=== PATIENT | female | born 1940 | race Caucasian/White ===

== ENCOUNTER 2016-04-14 06:25 | Day surgery (SDC) | payer MEDICARE ==
[~2016-04-14] VITALS: Ht 162.6 cm; Wt 53.8 kg
[2016-04-14] MEDS ORDERED: HEPARIN-NS/PF INJ 500 ML ONE (07:06)
[2016-04-14] MEDS ORDERED: ISOPROTERENOL HCL 1 MG/5 ML AMP ONE (07:18)
[2016-04-14] MEDS ORDERED: HEPARIN-D5W INJ 250 ML ONE (07:18)
[2016-04-14] MEDS ORDERED: SODIUM CHLORID 0.9% 500 ML INJ 500 ML IV SCH (07:30)
[2016-04-14] MEDS ORDERED: LEVOFLOXACIN 500 MG PREMIX INJ 100 ML IV SCH (07:30)
[2016-04-14] MEDS ORDERED: LORazepam 1 MG TAB SL SCH (07:30)
[2016-04-14] MEDS ORDERED: SODIUM CHLORID 0.9% 500 ML IV SCH (07:45)
[2016-04-14] MEDS ORDERED: INSULIN HUMAN REGULAR 1,000 UNITS/10 ML VIAL SQ PRN (07:45)
[2016-04-14] MEDS ORDERED: LACTATED RINGER'S 1000 ML IV SCH (07:45)
[2016-04-14] MEDS ORDERED: METOPROLOL TARTRATE 25 MG TAB PO PRN (07:45)
[2016-04-14] MEDS ORDERED: AMLO5TAB2 PO (07:50)
[2016-04-14] MEDS ORDERED: TELM1TAB56 PO (07:50)
[2016-04-14] MEDS ORDERED: PRIL20CA9 PO (07:50)
[2016-04-14] MEDS ORDERED: FLEC1TAB8 PO (07:50)
[2016-04-14] MEDS ORDERED: APIX5TAB PO (07:50)
[2016-04-14] MEDS ORDERED: METO100T9 PO (07:50)
[2016-04-14] MEDS ORDERED: SIMV20TA PO (07:50)
[2016-04-14 07:52] VITALS: BP 174/88; PULSE 63; RESP 16; TEMP 97.7; O2SAT 95
[2016-04-14 08:21] LABS: AUTOMATED NEUTROPHIL # 4.2 TH/MM3 (1.8-7.7); BASOPHIL % 0.7 % (0.0-2.0); EOSINOPHIL # 0.2 TH/MM3 (0-0.4); EOSINOPHIL % 2.4 % (0.0-4.0); HEMATOCRIT 40.7 % (35.0-46.0); HEMO FLAGS DIFF FINAL; LYMPH % 27.7 % (9.0-44.0); LYMPHOCYTE # 1.9 TH/MM3 (1.0-4.8); MEAN CELL VOLUME 91.9 FL (80.0-100.0); MEAN CORPUSCULAR HEMOGLOBIN 31.2 PG (27.0-34.0); MONO % 7.7 % (0.0-8.0); NEUT % 61.5 % (16.0-70.0); PLATELET COUNT 293 TH/MM3 (150-450); RED BLOOD COUNT 4.43 MIL/MM3 (4.00-5.30); RED CELL DISTRIBUTION WIDTH 13.8 % (11.6-17.2); WHITE BLOOD COUNT 6.8 TH/MM3 (4.0-11.0)
--- NOTE | 2016-04-14 08:27 | EKG ---
Date Performed: 04/14/2016 Time Performed: 07:08:24 PTAGE: 75 years EKG: Sinus bradycardia with borderline 1st degree A-V block Septal and lateral ST-T changes are nonspecific Borderline ECG PREVIOUS TRACING : 05/09/2005 09.46 No significant change from previous tracing noted. DOCTOR: Yariel Domingo Interpretating Date/Time 04/14/2016 08:26:09
[2016-04-14 08:32] LABS: PROTHROMBIN TIME - PATIENT 10.8 SEC (9.8-11.6)
[2016-04-14 08:43] LABS: BICARBONATE 27.2 MEQ/L (21.0-32.0); POTASSIUM 3.7 MEQ/L (3.5-5.1)
[2016-04-14] MEDS ORDERED: HEPARIN SODIUM - IV 10,000 UNITS/10 ML VIAL ONE (10:25)
[2016-04-14] MEDS ORDERED: fentaNYL CITRATE 250 MCG/5 ML AMP ONE (10:25)
[2016-04-14] MEDS ORDERED: FUROSEMIDE 40 MG/4 ML VIAL ONE (10:25)
[2016-04-14] MEDS ORDERED: PROTAMINE SULFATE 50 MG/5 ML VIAL ONE (11:17)
[2016-04-14] MEDS ORDERED: ONDANSETRON HCL 4 MG/2 ML VIAL IV PRN (11:45)
[2016-04-14] MEDS ORDERED: ATROPINE SULFATE 1 MG/ML VIAL IV PRN (11:45)
[2016-04-14] MEDS ORDERED: oxyCODONE/ACETAMINOPHEN 5 MG/325 MG TAB PO PRN ×2 (11:45)
[2016-04-14] MEDS ORDERED: SODIUM CHLOR 0.9% 250 ML INJ 250 ML IV PRN (11:45)
[2016-04-14] MEDS ORDERED: LORazepam 2 MG/ML VIAL IV PRN (11:45)
[2016-04-14] MEDS ORDERED: METOCLOPRAMIDE HCL 10 MG/2 ML VIAL IV PRN (11:45)
[2016-04-14] MEDS ORDERED: LIDOCAINE HCL 1% 50 ML VIAL INFIL PRN (11:45)
[2016-04-14] MEDS ORDERED: BACITRACIN OINT 0.9 GM PKT TOP ONE (11:45)
[2016-04-14] MEDS ORDERED: LABETALOL HCL 100 MG/20 ML VIAL ONE (11:54)
[2016-04-14] MEDS ORDERED: hydrALAZINE HCL 20 MG/ML VIAL ONE (11:54)
[2016-04-14] MEDS ORDERED: DO NOT ADM ANY ANTICOAGULANT DRUGS XX PRN (12:30)
[2016-04-14 20:00] VITALS: PULSE 80
[2016-04-14 21:00] VITALS: BP 159/82; PULSE 76; PULSE 83; RESP 14; TEMP 97.3; O2SAT 97
[2016-04-14] MEDS: APIXABAN 5 MG TABLET PO SCH (21:11)
[2016-04-14 22:00] VITALS: PULSE 74
[2016-04-14 23:00] VITALS: BP 120/64; PULSE 74; TEMP 97.3; O2SAT 97
[2016-04-14 23:37] VITALS: BP 120/64; PULSE 74; TEMP 97.3; O2SAT 97
[2016-04-15] VITALS (12 sets, daily range): BP systolic 119–124; BP diastolic 60–64; PULSE 71–84; TEMP 98.8; O2SAT 95–98
[2016-04-15 06:56] LABS: APTT (PATIENT) 24.4 SEC (24.3-30.1)
[2016-04-15] MEDS: APIXABAN 5 MG TABLET PO SCH (08:25)
[2016-04-15] MEDS: amLODIPine BESYLATE 5 MG TAB PO SCH ×2 (08:26→08:28)
[2016-04-15] MEDS ORDERED: LOSARTAN 50 MG TAB PO SCH (09:00)
[2016-04-15] MEDS ORDERED: PRAVASTATIN SOD 40 MG TAB PO SCH (09:00)
[2016-04-15] MEDS ORDERED: METOPROLOL SUCCINATE 50 MG EXTENDED RELEASE TAB PO SCH (09:00)
[2016-04-15] MEDS ORDERED: PANTOPRAZOLE SOD 20 MG DELAYED RELEASE TAB PO SCH (09:00)
--- NOTE | 2016-04-15 14:21 | EKG ---
Date Performed: 04/15/2016 Time Performed: 05:53:02 PTAGE: 75 years EKG: Sinus rhythm with borderline 1st degree A-V block Compared to the previous tracing, prominent anterior T wave ch anges have resolved. There has been an overall reduction in precordial voltage. Clinical correlation remained important. Borderline ECG PREVIOUS TRACING : 04/14/2016 13.02 DOCTOR: Siri Linares Interpretating Date/Time 04/15/2016 14:20:06
--- NOTE | 2016-04-15 14:21 | EKG ---
Date Performed: 04/14/2016 Time Performed: 13:02:19 PTAGE: 75 years EKG: Sinus rhythm MODERATE T-WAVE ABNORMALITY, CONSIDER ANTERIOR ISCHEMIA Compared to the previous tracing, there has been an increase in the anterior T wave changes. Clinical correlation advised. There has also been a n overall increase in precordial voltage. ABNORMAL ECG PREVIOUS TRACING : 04/14/2016 07.08 DOCTOR: Siri Linares Interpretating Date/Time 04/15/2016 14:19:33
--- NOTE | 2016-04-15 14:29 | PD.CARD.PN ---
Subjective Subjective Remarks Feels good Objective Vital Signs / I&O Vital Signs Date Time Temp Pulse Resp B/P Pulse Ox O2 Delivery O2 Flow Rate FiO2 04/15/16 11:00 75 04/15/16 10:00 84 04/15/16 09:00 73 04/15/16 08:30 98.8 74 124/64 95 04/15/16 08:00 73 04/15/16 07:00 73 04/15/16 05:00 72 04/15/16 04:00 73 04/15/16 03:00 74 04/15/16 03:00 74 119/60 98 04/15/16 03:00 74 119/60 98 04/15/16 02:00 72 04/15/16 01:00 73 04/15/16 00:00 71 04/14/16 23:37 97.3 74 120/64 97 04/14/16 23:00 97.3 74 120/64 97 04/14/16 23:00 74 04/14/16 22:00 74 04/14/16 21:00 97.3 83 14 159/82 97 04/14/16 21:00 76 04/14/16 20:00 80 04/14/16 19:00 97.9 78 14 161/81 96 Room Air 04/14/16 18:00 83 14 141/73 97 Room Air 04/14/16 16:00 76 15 154/78 97 Room Air 04/14/16 15:40 97.7 69 16 132/84 95 Room Air 04/14/16 15:00 68 16 138/80 94 Room Air I/O 04/14/16 04/14/16 04/14/16 04/15/16 04/15/16 04/15/16 07:00 15:00 23:00 07:00 15:00 23:00 Intake Total 300 ml 100 ml 240 ml Output Total 50 ml 600 ml 350 ml Balance 250 ml -500 ml -110 ml Intake Oral 240 ml IV Total 100 ml Other 300 ml Output Urine Total 600 ml 350 ml Estimated Blood Loss 50 ml # Voids 0 Physical Exam GENERAL: Well-nourished, well-developed patient. SKIN: Warm and dry. Groin sites soft with no hematoma or bleeding. HEAD: Normocephalic. EYES: No scleral icterus. No injection or drainage. NECK: Supple, trachea midline. No JVD or lymphadenopathy. CARDIOVASCULAR: Regular rate and rhythm without murmurs, gallops, or rubs. RESPIRATORY: Breath sounds equal bilaterally. No accessory muscle use. GASTROINTESTINAL: Abdomen soft, non-tender, nondistended. EXTREMITIES: No cyanosis, or edema. NEUROLOGICAL: Awake, alert, and oriented x 3. Non-focal. Laboratory Laboratory Tests Test 04/15/16 06:10 Prothrombin Time 11.0 SEC Prothromb Time International 1.0 RATIO Ratio Activated Partial 24.4 SEC Thromboplast Time Assessment and Plan Problem List: (1) Atrial fibrillation Assessment and Plan: NSR, stable s/p ablation. (2) S/P ablation of atrial fibrillation Assessment and Plan: Groins stable, NSR on tele, no events overnight. DC home , f/u with Dr. Medina in 3 weeks per my d/w him. Assessment and Plan D/W pt., RN, Dr. Medina. Problem Qualifiers (1) Atrial fibrillation: Qualified Code: I48.2 - Chronic atrial fibrillation Niru Cavazos Apr 15, 2016 14:29
--- NOTE | 2016-05-03 12:58 | PD.CARD ---
Atrial Fibrillation Cryo Study PROCEDURE DATE: Apr 14, 2016 PROCEDURE PERFORMED Electrophysiology study, CS cannulation, 3-D mapping, transeptal approach, right and left heart catheterization, cryoablation of atrial fibrillation, pulmonary vein isolation, posterior ablation, anterior ablation, repeat electrophysiology study on Isuprel infusion, intracardiac echo. Very complex case. INDICATIONS FOR PROCEDURE Ms. Victoria is a 75-year-old female with recurrent episodes of atrial fibrillation, on multiple medications, on anticoagulation, symptomatic, referred for electrophysiology study and ablation. The risks, the nature and the benefit of the procedure are clearly stated to her. The risks include pneumothorax, cardiac perforation, stroke, need for open heart surgery and even . The patient understood and agreed to proceed. PROCEDURE As written informed consent was obtained prior to esophageal echo, the patient was kept on the table where she was prepped and draped in the usual sterile fashion. Conscious sedation was initiated and throughout the procedure by the anesthesiologist. Once sedation was verified, the right and left inguinal area was anesthetized with 2% Xylocaine. Using modified Seldinger technique, the left femoral vein was cannulated on three occasions and three guidewires were advanced over the wire, one 6, one 7, and one 10-Cymraes Hemaquet were advanced. Then the left femoral artery was done on one occasion, one guidewire was advanced over the wire. A 4-Cymraes Hemaquet was advanced. Then the right femoral vein was cannulated on one occasion and one guidewire was advanced over the wire. An 8-Cymraes Hemaquet was advanced. Then under fluoroscopic guidance through the 6 and 7-Cymraes Hemaquet, two 5- Cymraes Song curved quadripolar electrophysiology catheters were advanced and positioned on the His as well as coronary sinus. The patient was in sinus rhythm. Basic interval was measured. They were all within normal limits. Then through the 10-Cymraes Hemaquet, a Cordis-Harding AcuNav intracardiac echo catheter was advanced and placed at the right atrium. Multiple views were obtained. There was no pericardial effusion. Pulmonary vein was seen. The atrial septum was visualized. Then the 8-Cymraes Hemaquet in the right femoral vein was exchanged for an Agilis transseptal sheath that was placed all the way to the superior vena cava. Through this sheath a [place] needle was advanced. Then the sheath, the dilator and the needle were pulled back progressively until foci engaged. Once the needle was advanced, RF was delivered for 2 seconds. I was able to cross into the left atrium. Once the needle was crossed, the dilator was advanced. Once the dilator was crossed, the sheath was advanced. Once the sheath crossed , the dilator and needle were removed. An intracardiac echo showed the sheath in good position. The patient already received 8,000 units of heparin. The goal is to get an ACT around 360 during the ablation. Through this sheath a [place] 20-pole circumferential catheter was advanced. Using [employer] endocardial solution mapping system a three-dimensional configuration of the left atrium was obtained. Points were taken at the left superior and inferior vein, right superior and inferior vein, mitral valve, and appendage. Then at this point I decided to proceed with cryoablation. The circumferential catheter was removed. Through the sheath a 0.035 wire was advanced. I did exchange the Agilis sheath for a [employer] flex sheath. I decided to use a 28mm balloon. The balloon was advanced over the wire. First I did engage the left superior vein. The balloon was inflated, complete occlusion obtained. CryoEnergy was delivered for 3 and 3 minutes. Temperature reached -48. Then I did engage the left inferior vein, occlusion obtained. Venography showed complete occlusion and CryoEnergy was delivered for 3 and 3 minutes. Temperature was around -50 to -52. Then the right inferior was engaged, complete occlusion obtained. Temperature reach -48 for 3 and 3 minutes. Then the right superior was engaged. Before CryoEnergy of the right veins, the His catheter was placed at the left and the right subclavian. Phrenic nerve pacing was performed. There was diaphragmatic stimulation. That is going to be used for phrenic nerve monitoring during cryoablation. I did cryoablate the right superior vein. There was no loss of phrenic nerve movement , diaphragmatic movement. Phrenic nerve was intact. The temperature dropped to -48 for 3 and 3 minutes. At that point I removed the balloon. The circumferential catheter was advanced into the veins. There was no signal into the veins. Pacing from the vein showed no conduction to the atrium. Pacing from the atrium showed no conduction to the veins. The patient at this point received Isuprel infusion for around 10 minutes at 20mcg. No tachyarrhythmia was induced, no conduction resumed. Post-Isuprel no conduction resumed either. At that point the procedure was complete. All catheters were removed, the transeptal sheath was exchanged for a 12-Cymraes Hemaquet. Intracardiac echo showed pericardial effusion, still good flow in the pulmonary vein. No incident reported. The patient tolerated the procedure. Blood loss minimal. 1. Electrocardiogram: At baseline the patient was in sinus. Postprocedure the patient in sinus. 2. Basic Interval: Base cycle length was around 800 milliseconds. 3. Tachyarrhythmia: Atrial fibrillation was mapped and ablated. Ablation was successful. CONCLUSION Successful electrophysiology study, mapping and cryo ablation of atrial fibrillation, pulmonary vein isolation, repeat electrophysiology study on Isuprel infusion. COMMENT AND RECOMMENDATIONS The patient is going to be transferred to the telemetry unit, will be observed, and when stable can be discharged home. Alverto Medina MD May 03, 2016 12:58
--- NOTE | 2016-05-03 15:15 | ETE ---
Study Study Date:04/14/2016 STUDY CONCLUSIONS SUMMARY - Left ventricle: The cavity size was normal. Wall thickness was normal. Systolic function was normal. Wall motion was normal; there were no regional wall motion abnormalities. - Aortic valve: No evidence of vegetation. - Mitral valve: No evidence of vegetation. Mild to moderate regurgitation. - Left atrium: No evidence of thrombus in the atrial cavity or appendage. No evidence of thrombus in the atrial cavity or appendage. - Right atrium: No evidence of thrombus in the atrial cavity or appendage. - Atrial septum: No defect or patent foramen ovale was identified. Echo contrast study showed no pwyep-kr-[id number] atrial level shunt, at baseline or with provocation. - Tricuspid valve: No evidence of vegetation. - Pulmonic valve: No evidence of vegetation. If LV function is below 40, please consider prescribing an ACEI or ARB or document rationale for non-use. PROCEDURE DATA Consent: The risks, benefits, and alternatives to the procedure were explained to the patient and informed consent was obtained. Procedure: Initial setup. The patient was brought to the laboratory in the fasting state. Intravenous access was obtained. Surface ECG leads and pulse oximetric signals were monitored. Sedation. Conscious sedation was administered by anesthesiology. Transesophageal echocardiography. Topical anesthesia was obtained using viscous lidocaine. A transesophageal probe was inserted by the attending director private. Image quality was good. Study completion: All IVs inserted during the procedure were removed. The patient tolerated the procedure well. There were no complications. Transesophageal echocardiography. 2D, complete spectral Doppler, and color Doppler. CARDIAC ANATOMY LEFT VENTRICLE: The cavity size was normal. Wall thickness was normal. Systolic function was normal. Wall motion was normal; there were no regional wall motion abnormalities. AORTIC VALVE: Structurally normal valve. Trileaflet; normal thickness leaflets. Cusp separation was normal. No evidence of vegetation. Doppler: No significant regurgitation. Aorta: - There was no atheroma. There was no evidence for dissection. Aortic root: The aortic root was not dilated. Ascending aorta: The ascending aorta was normal in size. Aortic arch: The aortic arch was normal in size. Descending aorta: The descending aorta was normal in size. MITRAL VALVE: Structurally normal valve. Leaflet separation was normal. No evidence of vegetation. Doppler: Mild to moderate regurgitation. LEFT ATRIUM: The atrium was normal in size. No evidence of thrombus in the atrial cavity or appendage. No evidence of thrombus in the atrial cavity or appendage. The appendage was morphologically a left appendage, multilobulated, and of normal size. Emptying velocity was normal. ATRIAL SEPTUM: No defect or patent foramen ovale was identified. Echo contrast study showed no [id number] atrial level shunt, at baseline or with provocation. RIGHT VENTRICLE: The cavity size was normal. Wall thickness was normal. Systolic function was normal. PULMONIC VALVE: Structurally normal valve. No evidence of vegetation. TRICUSPID VALVE: Structurally normal valve. Leaflet separation was normal. No evidence of vegetation. Doppler: Trace regurgitation. PULMONARY ARTERY: The main pulmonary artery was normal-sized. RIGHT ATRIUM: The atrium was normal in size. No evidence of thrombus in the atrial cavity or appendage. The appendage was morphologically a right appendage. PERICARDIUM: There was no pericardial effusion. Prepared and signed by Alverot Medina [id number]
== END 2016-04-15 12:12 | disposition home or self-care (01) ==
LOC: HDOC 06:25 → HDIC 06:26 → HCIS 19:10 → HDOC 04-15 12:12
PROVIDERS: ATTEND Internal Medicine Interventional Cardiology
DX: I48.2 Chronic atrial fibrillation (principal); I10 Essential (primary) hypertension; E78.5 Hyperlipidemia, unspecified; Z79.01 Long term (current) use of anticoagulants
CPT/HCPCS: 00537; 80048; 85002; 85025; 85610; 85730; 86850; 86900; 86901; 93005; 93312; 93320; 93325; 93613; 93623; 93656; 93662; C1730; C1731; C1732; C1733; C1766; C2630; J0360; J1644; J1940; J1956; J2405; J2720; J3010